=== PATIENT | male | born 2000 | race Caucasian/White ===

== ENCOUNTER 2020-07-29 15:30 | Observation (INO) ==
[2020-07-29] MEDS ORDERED: SODIUM CHLORIDE 0.9% 1000ML 1,000 ML IV ONE (17:10)
[2020-07-29] MEDS ORDERED: ALBUT/IPRATROP 3MG/0.5MG NEB 3 ML VIAL NEB STA (17:10)
--- NOTE | 2020-07-29 17:19 | Emergency Department Note ---
History of Present Illness General Chief complaint: Shortness of Breath/Dyspnea Stated complaint: TESTED POSITIVE FOR COVID Time Seen by Provider: 07/29/20 16:51 History of Present Illness Maximum Pain Intensity: 3 This patient is a 19-year-old male who presents ambulatory to the emergency department for evaluation of increased shortness of breath that has gotten progressively worse over the last 2 weeks. He is also reporting a productive cough. He denies any chest pain. The patient tested positive for Covid 2 weeks ago. He was seen at [facility] and prescribed a steroid and an albuterol inhaler, which he has been taking with no relief. Home Medications Medication Instructions Recorded Confirmed Type albuterol sulfate 2.5 mg CONTINUOUS NEBULIZATION Q4H 07/29/20 07/29/20 History Allergies Allergy/AdvReac Type Severity Reaction Status Date / Time No Known Allergies Allergy Unknown Verified 07/29/20 20:24 Past Med/Surg History Social History Smoking Status: Never smoker Cigarettes Per Day: patient just quit vaping 07/30/20; Hx Alcohol Use: No Hx Substance Use: No Preferred Language: German Communication Ability: Effective Title I Math Tutor Required: No Beliefs That Will Affect Care: None Current Living Situation: Family Other Information That Helps Us Care for You: No Feels Safe at Home: Yes Safety Concerns: Feels Safe At This Time Assistive Devices: None Assistive Devices Comment: Glasses -for driving -left at home Review of Systems A total of 10 systems reviewed and were otherwise negative Physical Exam Vital Signs Vital Signs - 24 hr 07/29/20 15:39 07/29/20 17:20 07/29/20 18:28 Temperature 36.5 C Temperature Source Oral Pulse Rate 119 H Pulse Rate [Finger] 116 H 108 H Pulse Rhythm Regular Pulse Strength Normal Respiratory Rate 24 18 24 Respiratory Effort / Characteristics Non-Labored Spontaneous SOB on Exertion Non-Labored Spontaneous Respiratory Depth Normal Respiratory Pattern Regular Blood Pressure 147/96 H Blood Pressure [Right Arm] 149/91 H Blood Pressure Mean 113 Blood Pressure Mean [Right Arm] 110 Blood Pressure Position Sitting Blood Pressure Position [Right Arm] Pulse Oximetry 97 97 98 Oxygen Delivery Method Room Air Room Air Sepsis Recent Fever Within 48 Hours No Sepsis New/Unexplained Change in Mental Status No Sepsis Action Taken by Nursing No Action Required 07/29/20 20:30 07/29/20 22:03 Temperature Temperature Source Pulse Rate Pulse Rate [Finger] 97 H 100 H Pulse Rhythm Pulse Strength Respiratory Rate 20 22 Respiratory Effort / Characteristics Non-Labored Spontaneous Respiratory Depth Normal Respiratory Pattern Regular Blood Pressure Blood Pressure [Right Arm] 162/93 H 163/105 H Blood Pressure Mean Blood Pressure Mean [Right Arm] 116 124 Blood Pressure Position Blood Pressure Position [Right Arm] Sitting Sitting Pulse Oximetry 98 98 Oxygen Delivery Method Room Air Room Air Sepsis Recent Fever Within 48 Hours Sepsis New/Unexplained Change in Mental Status Sepsis Action Taken by Nursing Constitutional WD/WN, vitals as above Eyes EOM intact bilaterally ENMT external ear and nose normal, oropharynx normal Neck trachea midline Respiratory Tachypnea noted Gastrointestinal (Abdomen) normal bowel sounds, soft, nontender, no hepatosplenomegaly Musculoskeletal no cyanosis or clubbing, extremities motor strength 5/5 Skin no rashes, warm and dry Neurologic Alert and oriented x3. No focal motor deficits. Psychiatric Acting appropriately Course Course Patient was seen and examined Vital signs including blood pressure were reviewed medications list was verified with patient Labs were obtained, and a saline lock was established A DuoNeb was ordered Imaging was performed and reviewed Findings were discussed with the patient. We discussed disposition options. He was comfortable with being possibly managed inpatient. The findings were discussed with the patient's mother. She was in agreement. Antibiotics were ordered and given The case was discussed with the [facility]. They agreed to evaluate the patient for possible inpatient management. The patient remained stable in the emergency department. Administered Medications Doxycycline Hyclate (Doxycycline Hyclate 100 Mg Cap) 100 mg PO BID YOANA Stop: 08/06/20 08:59 Last Admin: 07/30/20 08:26 Dose: 100 mg Documented by: [id number] Enoxaparin Sodium (Enoxaparin Inj 40 Mg/0.4 Ml Syr) 40 mg SQ Q12H YOANA Stop: 08/29/20 00:59 Last Admin: 07/30/20 10:37 Dose: 40 mg Documented by: [id number] Admin: 07/30/20 02:00 Dose: 40 mg Documented by: [id number] Discontinued Medications Albuterol (Albut/Ipratrop 3mg/0.5mg Neb 3 Ml Vial) 3 ml NEB NOW STA Stop: 07/29/20 17:11 Last Admin: 07/29/20 17:19 Dose: 3 ml Documented by: [id number] Azithromycin (Azithromycin 250 Mg Tab) 500 mg PO NOW ONE Stop: 07/29/20 20:13 Last Admin: 07/29/20 20:26 Dose: 500 mg Documented by: [id number] Sodium Chloride (Nss 1000ml) 1,000 mls @ 999 mls/hr IV .Q1H1M ONE Stop: 07/29/20 18:10 Last Infusion: 07/29/20 19:07 Dose: 0 mls/hr Documented by: [id number] Admin: 07/29/20 18:06 Dose: 999 mls/hr Documented by: [id number] Ceftriaxone Sodium (Rocephin) 2,000 mg in 70 mls @ 140 mls/hr IV NOW STA Stop: 07/29/20 20:41 Last Infusion: 07/29/20 20:56 Dose: 0 mls/hr Documented by: [id number] Admin: 07/29/20 20:26 Dose: 140 mls/hr Documented by: [id number] Ioversol (Optiray 320 125ml) 119 ml IV ONCE ONE Stop: 07/29/20 19:15 Last Admin: 07/29/20 19:15 Dose: 119 ml Documented by: [id number] Medical Decision Making Medical Records Attestation: I reviewed the patient's medical records. Home Medications Current Medication List: was personally reviewed by me Laboratory Data Attestation: I reviewed the patient's lab results. Result diagrams: 07/30/20 05:38 07/30/20 05:38 Lab Results 07/29/20 07/29/20 07/29/20 Range/Units 18:03 18:03 18:03 WBC 10.86 H (4.8-10.8) K/uL RBC 5.39 (4.7-6.1) M/uL Hgb 15.7 (14.0-18.0) g/dL Hct 45.8 (42-52) % MCV 85.0 (80-100) fL MCH 29.1 (25-34) pg MCHC 34.3 (32-36) g/dL RDW Std Deviation 43.3 (36.4-46.3) fL RDW Coeff of Minesh 14.0 (11.5-14.5) % Plt Count 349 (130-400) K/uL MPV 9.1 (7.4-10.4) fL Immature Gran % (Auto) 0.9 % Neut % (Auto) 63.4 % Lymph % (Auto) 27.6 % [place] % (Auto) 6.7 % Eos % (Auto) 1.2 % Baso % (Auto) 0.2 % Neut # (Auto) 6.88 H (1.4-6.5) K/uL Lymph # (Auto) 3.00 (1.2-3.4) K/uL [place] # (Auto) 0.73 H (0.11-0.59) K/uL Eos # (Auto) 0.13 (0-0.5) K/uL Baso # (Auto) 0.02 (0-0.2) K/uL Immature Gran # (Auto) 0.10 H (0.00-0.02) K/uL PT 10.1 (9.0-12.0) Seconds INR 1.0 (0.9-1.1) Sodium 138 (136-145) mmol/L Potassium 4.0 (3.5-5.1) mmol/L Chloride 107 (98-107) mmol/L Carbon Dioxide 24 (21-32) mmol/L Anion Gap 7.0 (3-11) BUN 23 H (7-18) mg/dl Creatinine 0.84 (0.6-1.4) mg/dl Est Cr Clr Drug Dosing 227.4 ml/min Est GFR ( Amer) 147.1 Est GFR (Non-Af Amer) 126.9 BUN/Creatinine Ratio 27.4 H (10-20) Glucose 96 (70-99) mg/dl Calcium 9.2 (8.5-10.1) mg/dl Total Bilirubin 0.3 (0.2-1) mg/dl AST 17 (15-37) U/L ALT 43 (12-78) U/L Alkaline Phosphatase 81 (45-117) U/L Troponin I < 0.015 (0-0.045) ng/ml Total Protein 7.6 (6.4-8.2) gm/dl Albumin 3.1 L (3.4-5.0) gm/dl Globulin 4.5 H (2.5-4.0) gm/dl Albumin/Globulin Ratio 0.7 L (0.9-2) Imaging Data Attestation: I personally reviewed and interpreted this imaging study as follows: Radiologist's Impression: CT chest PE study IMPRESSION: 1. Suboptimal pulmonary arterial opacification, but no findings to indicate acute pulmonary embolism 2. Multifocal bilateral groundglass pulmonary opacities consistent with a multifocal pneumonia. The findings are consistent with although not specific for Covid 19 pneumonia 3. Mild mediastinal and hilar danya enlargement, likely reactive ACT 112: Negative or not required by law. Electronically signed by: Nelson Mackay M.D. 07/29/2020 7:20 PM Dictated: 07/29/201914 Transcribed: 07/29/201918 MDM Narrative Differential diagnosis: Bronchitis, pneumonia, other infectious etiology including Covid, PE, cardiac ischemia, anemia, dehydration, among others were considered This patient is a pleasant 19-year-old male who presents ambulatory to the emergency department for evaluation of increasing shortness of breath over the last several weeks. He tested positive for Covid. On exam, he was slightly tachycardic and tachypneic. Oxygen at this point is stable in the low 90s. A work-up was performed. Labs were unremarkable. A CT scan was performed to rule out PE or pneumonia. This is consistent with multifocal pneumonia. As the patient has already been treated with albuterol and steroids as an outpatient, I believe hospitalist consultation is reasonable for possible inpatient management. He was treated with antibiotics and albuterol in the emergency department. He remained stable. Impression & Plan Community acquired pneumonia Discharge Plan Visit Data Chief Complaint: Shortness of Breath/Dyspnea Stated Complaint: TESTED POSITIVE FOR COVID ED Provider: Maxi Gonzalez ED Midlevel Provider: Jacqueline Garvin Discharge Problem: Community acquired pneumonia Patient Disposition: Admitted As Inpatient Discharge Instructions Interventions: ED Discharge Assessment Last Done: 07/30/20 00:23
[2020-07-29 18:14] LABS: Basophils # (auto) 0.02 K/uL (0-0.2); Basophils % (auto) 0.2 %; Eosinophils # (auto) 0.13 K/uL (0-0.5); Eosinophils % (auto) 1.2 %; Hematocrit (blood only) 45.8 % (42-52); Hemoglobin 15.7 g/dL (14.0-18.0); Immature Granulocytes % (auto) 0.9 %; Lymphocytes % (auto) 27.6 %; Mean Corpuscular Hemoglobin 29.1 pg (25-34); Mean Corpuscular Hgb Conc 34.3 g/dL (32-36); Mean Platelet Volume 9.1 fL (7.4-10.4); Monocytes # (auto) 0.73 K/uL (0.11-0.59); Monocytes % (auto) 6.7 %; Neutrophils # (auto) 6.88 K/uL (1.4-6.5); Neutrophils % (auto) 63.4 %; Platelet Count 349 K/uL (130-400); RDW Standard Deviation 43.3 fL (36.4-46.3); Red Blood Count 5.39 M/uL (4.7-6.1); White Blood Count 10.86 K/uL (4.8-10.8)
[2020-07-29 18:28] LABS: Prothrombin Time 10.1 Seconds (9.0-12.0)
[2020-07-29 18:32] LABS: Alanine Aminotransferase 43 U/L (12-78); Albumin Level 3.1 gm/dl (3.4-5.0); Aspartate Aminotransferase 17 U/L (15-37); BUN Creatinine Ratio 27.4 (10-20); Blood Urea Nitrogen 23 mg/dl (7-18); Calcium 9.2 mg/dl (8.5-10.1); Carbon Dioxide 24 mmol/L (21-32); Chloride 107 mmol/L (98-107); Creatinine Clr Calc Pharmacy 227.4 ml/min; Est GFR (African American) 147.1; Est GFR (Non-African American) 126.9; Glucose 96 mg/dl (70-99); Sodium 138 mmol/L (136-145)
[2020-07-29 18:36] LABS: Albumin Globulin Ratio 0.7 (0.9-2); Alkaline Phosphatase 81 U/L (45-117); Bilirubin,Total 0.3 mg/dl (0.2-1); Globulin 4.5 gm/dl (2.5-4.0); Total Protein 7.6 gm/dl (6.4-8.2); Troponin I < 0.015 ng/ml (0-0.045)
[2020-07-29] MEDS ORDERED: OPTIRAY 320 125ml IV ONE (19:14)
--- NOTE | 2020-07-29 19:21 | CT Scan Report ---
CT ANGIOGRAM OF THE CHEST CLINICAL HISTORY: Shortness of breath. Covid 19 positive. POSSIBLE PULMONARY EMBOLISM. COMPARISON STUDY: No previous studies for comparison. TECHNIQUE: Following the IV administration of 119 mL of Optiray-320, CT angiogram of the thorax was p erformed from the thoracic inlet to the lung bases utilizing the pulmonary embolus protocol. Images a re reviewed in the axial, sagittal, and coronal planes. IV contrast was administered without complica tion. MIP imaging was performed. A dose lowering technique was utilized adhering to the principles o f ALARA. CT DOSE: 1047.70 mGy.cm FINDINGS: Within the upper abdomen, there is a nonspecific partially visualized 19 mm nodule adjacent the left adrenal gland and posterior medial to the stomach. This cannot be further characterized as it is inco mpletely visualized There are mildly enlarged mediastinal and hilar lymph nodes, statistically reactive. There was no evidence of thoracic aortic dilatation. There is suboptimal pulmonary arterial opacification. No emboli are visualized. If there is a strong clinical concern over the presence of acute pulmonary embolism, correlation with serial leg ultrasono graphy should be considered. No pleural effusions are visualized. There are multifocal bilateral groundglass pulmonary opacities consistent with a multifocal pneumonia . The appearance is consistent with although not specific for Covid 19 pneumonia. IMPRESSION: 1. Suboptimal pulmonary arterial opacification, but no findings to indicate acute pulmonary embolism 2. Multifocal bilateral groundglass pulmonary opacities consistent with a multifocal pneumonia. The f indings are consistent with although not specific for Covid 19 pneumonia 3. Mild mediastinal and hilar danya enlargement, likely reactive ACT 112: Negative or not required by law. Electronically signed by: Nelson Mackay M.D. 07/29/2020 7:20 PM
[2020-07-29] MEDS ORDERED: AZITHROMYCIN 250 MG TAB PO ONE (20:12)
[2020-07-29] MEDS ORDERED: cefTRIAXone SODIUM 2,000 MG/70 ML BAG IV STA (20:12)
[2020-07-30] MEDS ORDERED: KETOROLAC TROMETHAMINE 15 MG/ML VIAL IV PRN (00:44)
[2020-07-30] MEDS ORDERED: ACETAMINOPHEN 325 MG TAB PO PRN (00:44)
[2020-07-30] MEDS ORDERED: ALBUTEROL HFA 8 GM INHALER INH PRN (00:44)
--- NOTE | 2020-07-30 00:57 | History and Physical Report ---
DATE OF ADMISSION: 07/29/2020 CHIEF COMPLAINT: Shortness of breath, chest pain on deep inspiration. HISTORY OF PRESENT ILLNESS: This 19-year-old male with past medical history significant for metabolic syndrome, history of prolonged QT interval, history of morbid obesity,urticaria, ADHD, who was diagnosed with COVID-19 on 07/16/2020 at [facility], comes because of shortness of breath, ongoing cough and could not take deep breath because it causes chest pain. The patient was in [facility] similar symptoms on 07/22/2020. He was given prednisone and also using albuterol nebulization at home.But the patient says walking a few steps making him short of breath and is still coughing, not bringing much phlegm, but dry cough and also says a deep breath causes chest pains.. Denies any fever, chills. No nausea, no vomiting, no loss of sense of smell or taste. Appetite is good. No weakness, no fatigue, no headache, no blurred vision, no earache, no runny nose, no sore throat. Sometimes nauseous, no vomiting, no abdominal pain. Normal bowel and bladder movements. Currently, resting comfortably and hemodynamically stable. ALLERGIES: PENICILLIN, SULFA AND BACTRIM. PAST MEDICAL HISTORY: As mentioned above. PAST SURGICAL HISTORY: Circumcision and incision of the urinary meatus, tonsillectomy, adenoidectomy, salivary surgery procedure. MEDICATIONS: On albuterol nebulization q. 4 hours p.r.n. FAMILY HISTORY: Significant for mother has hypertension, diabetes, asthma. Father has diabetes, hypertension. Paternal grandmother has asthma and allergies and medullary thyroid cancer, diabetes, hypertension, psoriasis. Maternal grandmother has psoriasis, hypertension, diabetes. Maternal grandfather had psoriasis. Paternal grandfather has diabetes, hypertension. SOCIAL HISTORY: Single, vapes. No alcohol use, no drug use. REVIEW OF SYMPTOMS: As per HPI. Rest of review of symptoms negative. PHYSICAL EXAMINATION: GENERAL: The patient is morbidly obese, not in acute distress. VITAL SIGNS: Temperature 36.5, pulse 100, respiratory rate 22, blood pressure 163/105, oxygen 98% on room air. HEENT: Pupils equal, round, reactive to light. Oral mucosa moist. NECK: No neck masses seen. CARDIOVASCULAR: S1, S2 heard, regular rate and rhythm, no murmur, no gallop. RESPIRATORY SYSTEM: Normal AP diameter. No accessory muscle use. No wheezing, no crackles. ABDOMEN: Soft, bowel sounds present, nontender. No distention. CENTRAL NERVOUS SYSTEM: Cranial nerves II-XII grossly intact. Nonfocal. EXTREMITIES: No edema, no erythema. LABORATORY DATA: WBC 10.8, hemoglobin 15.7, hematocrit 45.8, platelets 349. PT 10.1, INR 1. Sodium 138, potassium 4, chloride 107, bicarbonate 24, BUN 23, creatinine 0.8, serum glucose 296, calcium 9.2, total bilirubin 0.3, AST 17, ALT 43, alkaline phosphatase 81. Troponin I less than 0.015. IMAGING: CTA of the chest suboptimal pulmonary artery opacification, but no findings to indicate acute pulmonary embolism, multifocal bilateral ground-glass pulmonary opacities consistent with multifocal pneumonia. The findings are consistent with although nonspecific for COVID-19 pneumonia, mild mediastinal and hilar danya enlargement, likely reactive. ASSESSMENT AND PLAN: This is a 19-year-old male who was diagnosed with COVID-19 on 07/16/2020, comes with ongoing cough, shortness of breath with exertion and pleurisy symptoms. 1. COVID-19 pneumonia. The patient was diagnosed in 07/16/2020, but he had symptoms couple of days prior to that, is almost like 16 days from the start of infection. He was treated with steroids, also nebs, presents with pleurisy kind of symptoms, having pain with deep breath and also he says he gets short of breath with minimal exertion and still has some dry cough. CTA of the chest showed no PE, but shows multifocal pneumonia. Currently, saturating fine on room air while resting. We will admit to the hospital medical floor. In the ER, he was given azithromycin, will start him on doxycycline for any superimposed bacterial infection. Toradol p.r.n. for pain, check D-dimer and troponin levels in a.m. and we will get an EKG as the patient has history of prolonged QT interval. 2. Morbid obesity, needs counseling. 3. Deep venous thrombosis prophylaxis. DISPOSITION: Admit to medical floor. Expect to discharge home and follow with family doctor. Level 1 full code. MTDD
[2020-07-30] MEDS: ENOXAPARIN INJ 40 MG/0.4 ML SYR SQ SCH ×2 (02:00→10:37)
[2020-07-30 07:39] LABS: Hematocrit (blood only) 43.1 % (42-52); Hemoglobin 14.5 g/dL (14.0-18.0); Mean Corpuscular Hemoglobin 28.9 pg (25-34); Mean Corpuscular Hgb Conc 33.6 g/dL (32-36); Mean Corpuscular Volume 85.9 fL (80-100); RDW Standard Deviation 44.1 fL (36.4-46.3); Red Blood Count 5.02 M/uL (4.7-6.1); White Blood Count 8.87 K/uL (4.8-10.8)
[2020-07-30 07:40] LABS: Basophils # (auto) 0.02 K/uL (0-0.2); Basophils % (auto) 0.2 %; Eosinophils # (auto) 0.13 K/uL (0-0.5); Eosinophils % (auto) 1.5 %; Immature Granulocytes # (auto) 0.06 K/uL (0.00-0.02); Immature Granulocytes % (auto) 0.7 %; Lymphocytes # (auto) 2.11 K/uL (1.2-3.4); Lymphocytes % (auto) 23.8 %; Mean Platelet Volume 9.2 fL (7.4-10.4); Monocytes # (auto) 0.79 K/uL (0.11-0.59); Monocytes % (auto) 8.9 %; Neutrophils # (auto) 5.76 K/uL (1.4-6.5); Neutrophils % (auto) 64.9 %; Platelet Count 332 K/uL (130-400); RDW Coefficient of Variation 14.1 % (11.5-14.5)
[2020-07-30 07:50] LABS: D Dimer 310 ug/L FEU (0-500)
[2020-07-30 08:06] LABS: BUN Creatinine Ratio 23.7 (10-20); Blood Urea Nitrogen 17 mg/dl (7-18); Calcium 9.2 mg/dl (8.5-10.1); Carbon Dioxide 26 mmol/L (21-32); Chloride 105 mmol/L (98-107); Creatinine Clr Calc Pharmacy 282.1 ml/min; Est GFR (African American) > 150.0; Est GFR (Non-African American) 134.5; Glucose 72 mg/dl (70-99); Magnesium 2.2 mg/dl (1.8-2.4); Potassium 3.9 mmol/L (3.5-5.1); Sodium 137 mmol/L (136-145)
[2020-07-30 08:10] LABS: Troponin I < 0.015 ng/ml (0-0.045)
[2020-07-30] MEDS ORDERED: DOXYCYCLINE HYCLATE 100 MG CAP PO SCH (09:00)
--- NOTE | 2020-07-30 13:01 | Hospitalist Progress Note ---
Date of Service July 30, 2020 Assessment & Plan (1) COVID-19: Seen in ED at [facility] on 07/16/20 with pleuritic chest pain and SOB. + exposure to COVID-19 (sister). Patient's SARS-CoV-2 PCR was positive. Chest x-ray was clear. O2 sats were normal on RA. Given prescriptions for dexamethasone and albuterol. Did not take full course of dexamethasone. Presented to ED at [facility] with recurrent pleuritic chest pain and dyspnea on exertion. No fever or hypoxia. CTA chest showed bilateral pulmonary densities consistent with viral pneumonia; study was negative for PE. Given time since onset of symptoms ( > 2 weeks) and lack of hypoxia, COVID- specific therapies not indicated. Pleuritic chest pain treated with steroids with improvement- DC on methylprednisolone dose pack. Received doxycycline for possible concomitant atypical pneumonia. Has pulse ox at home at will continue to monitor O2 sats. (2) Pneumonia due to COVID-19 virus: As discussed above. (3) DVT prophylaxis: SQ enoxaparin. (4) Discharge planning issues: Discharged to home. Medical follow-up with Martha. Mother given update by phone. She is a nurse and will monitor O2 sats at home. Admission and Anticipated Discharge Date Admission Date: July 29, 2020 Subjective Recheck for COVID-19. Feels better. Cough improved. Pleuritic chest pain resolved. Afebrile. Maintaining O2 sats in mid-high 90s on RA. Has some dyspnea with exertion. No nausea, vomiting, diarrhea. Physical Exam 2 Constitutional: no acute distress Eyes: + anicteric sclerae Respiratory: no respiratory distress Auscultation: + wheezes (mild) Cardiovascular: Rate/Rhythm: regular rate and regular rhythm Vessels: no JVD Extremities: no calf tenderness and no edema Gastrointestinal (Abdomen): normal bowel sounds, soft, nontender, no hepatosplenomegaly Musculoskeletal: Extremities: no cyanosis Skin: no rashes, warm and dry Psychiatric: Orientation: alert and oriented x 3 Results & Data Results & Data ([facility]) Vital Signs (Past 12 Hours) Vital Signs Temp Pulse Resp BP Pulse Ox 07/30/20 07:20 36.7 C 99 H 16 157/85 H 95 Laboratory Results 07/30/20 05:38 07/30/20 05:38
--- NOTE | 2020-08-01 11:08 | Discharge Summary ---
Date of Service Date of Admission: 07/29/20 Date of Discharge: 07/30/20 Admission HPI Per Admitting Provider This 19-year-old male with past medical history significant for metabolic syndrome, history of prolonged QT interval, history of morbid obesity,urticaria, ADHD, who was diagnosed with COVID-19 on 07/16/2020 at [facility], comes because of shortness of breath, ongoing cough and could not take deep breath because it causes chest pain. The patient was in [facility] similar symptoms on 07/22/2020. He was given prednisone and also using albuterol nebulization at home.But the patient says walking a few steps making him short of breath and is still coughing, not bringing much phlegm, but dry cough and also says a deep breath causes chest pains.. Denies any fever, chills. No nausea, no vomiting, no loss of sense of smell or taste. Appetite is good. No weakness, no fatigue, no headache, no blurred vision, no earache, no runny nose, no sore throat. Sometimes nauseous, no vomiting, no abdominal pain. Normal bowel and bladder movements. Currently, resting comfortably and hemodynamically stable. Principal Diagnosis COVID-19 pneumonia Discharge Data Allergies Allergy/AdvReac Type Severity Reaction Status Date / Time No Known Allergies Allergy Unknown Verified 07/29/20 20:24 Consultations 07/29/20 22:58 ED Decision to Admit Stat Ordered Studies 07/29/20 17:10 CT angio chest PE protocol Stat Hospital Course (1) COVID-19: Seen in ED at [facility] on 07/16/20 with pleuritic chest pain and SOB. + exposure to COVID-19 (sister). Patient's SARS-CoV-2 PCR was positive. Chest x-ray was clear. O2 sats were normal on RA. Given prescriptions for dexamethasone and albuterol. Did not take full course of dexamethasone. Presented to ED at [facility] with recurrent pleuritic chest pain and dyspnea on exertion. No fever or hypoxia. CTA chest showed bilateral pulmonary densities consistent with viral pneumonia; study was negative for PE. Given time since onset of symptoms ( > 2 weeks) and lack of hypoxia, COVID- specific therapies not indicated. Pleuritic chest pain treated with steroids with improvement- DC on methylprednisolone dose pack. Received doxycycline for possible concomitant atypical pneumonia. Has pulse ox at home at will continue to monitor O2 sats. (2) Pneumonia due to COVID-19 virus: As discussed above. (3) DVT prophylaxis: SQ enoxaparin. (4) Discharge planning issues: Discharged to home. Medical follow-up with Martha. Mother given update by phone. She is a nurse and will monitor O2 sats at home. Total Time Total Time Spent Total Time Spent (In Minutes): 25 Discharge Plan Discharge Items Patient Disposition: Home - Self-Care Reason For Visit: shortness of breath Discharge Diagnosis: COVID pneumonia Activity: As commented below Activity Comment: Gradually increase activity as tolerated. Non-emergency contact: Primary Care Provider and Hospitalist Call non-emergency contact if: you have any medication questions, your symptoms worsen and your temperature is above 101 Follow-up/Referrals: Adriel Thomas MD [Primary Care Provider] - (Date & Time 08/05/2020 2:00 PM Mirlande Huitron, [facility] PLEASE NOTE THAT THIS IS A TELEVIDEO APPOINTMENT. PLEASE FOLLOW THE INSTRUCTIONS PROVIDED IN THE EMAIL YOU WILL RECEIVE. IF YOU HAVE ANY QUESTIONS, PLEASE CALL .) Diet: Regular Addtl Attending Provider Instructions: MEDICATION CHANGES: methylprednisolone taper (Medrol Dosepak) steroid for chest pain- use instead of dexamethasone ibuprofen (Advil) 600 mg 1 pill with food, up to 3 times a day as needed for severe chest pain doxycycline 100 mg 1 pill twice a day (Will not treat COVID, but it is being prescribed in case you have a bacterial pneumonia.) SUMMARY OF TEST RESULTS: CT scan showed changes that look like COVID pneumonia. Oxygen levels were very good- 95-99%. COVID INSTRUCTIONS: Home Isolation COVID-19 Instructions The following information about Home Isolation is from the CDC Website: https://www.cdc.gov/coronavirus/2019-ncov/hcp/ulzzwaqy-artdmrn-cwphzc.html Stay home except to get medical care People who are mildly ill with COVID-19 are able to isolate at home during their illness. You should restrict activities outside your home, except for getting medical care. Do not go to work, school, or public areas. Avoid using public transportation, ride-sharing, or taxis. Separate yourself from other people and animals in your home People: As much as possible, you should stay in a specific room and away from other people in your home. Also, you should use a separate bathroom, if available. Animals: You should restrict contact with pets and other animals while you are sick with COVID-19, just like you would around other people. Although there have not been reports of pets or other animals becoming sick with COVID-19, it is still recommended that people sick with COVID-19 limit contact with animals until more information is known about the virus. When possible, have another member of your household care for your animals while you are sick. If you are sick with COVID-19, avoid contact with your pet, including petting, snuggling, being kissed or licked, and sharing food. If you must care for your pet or be around animals while you are sick, wash your hands before and after you interact with pets and wear a face mask. Call ahead before visiting your doctor If you have a medical appointment, call the healthcare provider and tell them that you have or may have COVID-19. This will help the healthcare providers office take steps to keep other people from getting infected or exposed. Wear a face mask You should wear a face mask when you are around other people (e.g., sharing a room or vehicle) or pets and before you enter a healthcare providers office. If you are not able to wear a face mask (for example, because it causes trouble breathing), then people who live with you should not stay in the same room with you, or they should wear a face mask if they enter your room. Cover your coughs and sneezes Cover your mouth and nose with a tissue when you cough or sneeze. Throw used tissues in a lined trash can. Immediately wash your hands with soap and water for at least 20 seconds or, if soap and water are not available, clean your hands with an alcohol-based hand quad stayer that contains at least 60% alcohol. Clean your hands often Wash your hands often with soap and water for at least 20 seconds, especially after blowing your nose, coughing, or sneezing; going to the bathroom; and before eating or preparing food. If soap and water are not readily available, use an alcohol-based hand quad stayer with at least 60% alcohol, covering all surfaces of your hands and rubbing them together until they feel dry. Soap and water are the best option if hands are visibly dirty. Avoid touching your eyes, nose, and mouth with unwashed hands. Avoid sharing personal household items You should not share dishes, drinking glasses, cups, eating utensils, towels, or bedding with other people or pets in your home. After using these items, they should be washed thoroughly with soap and water. Clean all high-touch surfaces everyday High touch surfaces include counters, tabletops, doorknobs, bathroom fixtures, toilets, phones, keyboards, tablets, and bedside tables. Also, clean any surfaces that may have blood, stool, or body fluids on them. Use a household cleaning spray or wipe, according to the label instructions. Labels contain instructions for safe and effective use of the cleaning product including precautions you should take when applying the product, such as wearing gloves and making sure you have good ventilation during use of the product. Monitor your symptoms Seek prompt medical attention if your illness is worsening (e.g., difficulty breathing).Beforeseeking care, call your healthcare provider and tell them that you have, or are being evaluated for, COVID-19. Put on a face mask before you enter the facility. These steps will help the healthcare providers office to keep other people in the office or waiting room from getting infected or exposed. Ask your healthcare provider to call the local or state health department. Persons who are placed under active monitoring or facilitated self- monitoring should follow instructions provided by their local health department or occupational health professionals, as appropriate. When working with your local health department check their available hours. If you have a medical emergency and need to call 911, notify the dispatch personnel that you have, or are being evaluated for COVID-19. If possible, put on a face mask before emergency medical services arrive. Discontinuing home isolation Patients with confirmed COVID-19 should remain under home isolation precautions until the risk of secondary transmission to others is thought to be low. The decision to discontinue home isolation precautions should be made on a [id number] basis, in consultation with healthcare providers and state and local health departments. According to the CDC: You can be around others after: 10 days since symptoms first appeared and 24 hours with no fever without the use of fever-reducing medications and Other symptoms of COVID-19 are improving OTHER INSTRUCTIONS: It is going to take time to recover from COVID pneumonia, maybe several weeks. Take it slow and easy. Gradually increase activity as tolerated. Check your oxygen levels every day with pulse oximeter. You should not return to work until feeling better and: -10 days since symptoms first appeared and -24 hours with no fever without the use of fever-reducing medications and -Other symptoms of COVID-19 are improving Seek medical attention if you have: * temperature above 101 * chest pain or trouble breathing * pulse oximeter reading less than 90% * abdominal pain, nausea, vomiting * diarrhea, dark stools or bloody stools * any unanswered questions or concerns Call 911 if symptoms are severe. Please take good care of yourself. Call if you have any questions or problems. You can reach a [facility] hospitalist on duty at [facility] 24 hours a day by calling [phone]. My cell # is [phone]. Pending Studies at Discharge: No Stand-Alone Forms: [facility], Work/School Release (Inpt), Smoking Cessation Medications and DC Order Prescriptions: New methylprednisolone [Methylpred DP] 4 mg tablets,dose pack See Rx Instructions .ROUTE .COMPLEX Qty: 21 RF: 0 doxycycline hyclate 100 mg tablet,delayed release (DR/EC) 100 mg PO BID 7 Days Qty: 14 RF: 0 ibuprofen 600 mg tablet 600 mg PO TID PRN (Reason: pain) Qty: 30 RF: 0 Continued albuterol sulfate 2.5 mg /3 mL (0.083 %) solution for nebulization 2.5 mg continuous nebulization Q4H RF: 0 Discharge Orders: Discharge Order (Routine); Ordered 07/30/20 Ordered By: Michele Capellan/Other Patient Handouts: COVID-19 Prevention Admission Data Admit Date/Time: 07/29/20 22:45 Attending Provider: Michele Castro Admit Provider: Govind Solomon Primary Care Provider: Adriel Thomas Other Providers: Govind Solomon Other Interventions: Discharge Summary Assessment (RN) Last Done: 07/30/20 15:49
--- NOTE | 2020-08-01 11:18 | Discharge Summary ---
Date of Service Date of Admission: 07/29/20 Date of Discharge: 07/30/20 Admission HPI Per Admitting Provider This 19-year-old male with past medical history significant for metabolic syndrome, history of prolonged QT interval, history of morbid obesity,urticaria, ADHD, who was diagnosed with COVID-19 on 07/16/2020 at [facility], comes because of shortness of breath, ongoing cough and could not take deep breath because it causes chest pain. The patient was in [facility] similar symptoms on 07/22/2020. He was given prednisone and also using albuterol nebulization at home.But the patient says walking a few steps making him short of breath and is still coughing, not bringing much phlegm, but dry cough and also says a deep breath causes chest pains.. Denies any fever, chills. No nausea, no vomiting, no loss of sense of smell or taste. Appetite is good. No weakness, no fatigue, no headache, no blurred vision, no earache, no runny nose, no sore throat. Sometimes nauseous, no vomiting, no abdominal pain. Normal bowel and bladder movements. Currently, resting comfortably and hemodynamically stable. Principal Diagnosis COVID-19 pneumonia Discharge Data Allergies Allergy/AdvReac Type Severity Reaction Status Date / Time No Known Allergies Allergy Unknown Verified 07/29/20 20:24 Consultations 07/29/20 22:58 ED Decision to Admit Stat Ordered Studies 07/29/20 17:10 CT angio chest PE protocol Stat Hospital Course (1) COVID-19: Seen in ED at [facility] on 07/16/20 with pleuritic chest pain and SOB. + exposure to COVID-19 (sister). Patient's SARS-CoV-2 PCR was positive. Chest x-ray was clear. O2 sats were normal on RA. Given prescriptions for dexamethasone and albuterol. Did not take full course of dexamethasone. Presented to ED at [facility] with recurrent pleuritic chest pain and dyspnea on exertion. No fever or hypoxia. CTA chest showed bilateral pulmonary densities consistent with viral pneumonia; study was negative for PE. Given time since onset of symptoms ( > 2 weeks) and lack of hypoxia, COVID- specific therapies not indicated. Pleuritic chest pain treated with steroids with improvement- DC on methylprednisolone dose pack. Received doxycycline for possible concomitant atypical pneumonia. Has pulse ox at home at will continue to monitor O2 sats. (2) Pneumonia due to COVID-19 virus: As discussed above. (3) DVT prophylaxis: SQ enoxaparin. (4) Discharge planning issues: Discharged to home. Medical follow-up with Martha. Mother given update by phone. She is a nurse and will monitor O2 sats at home. Total Time Total Time Spent Total Time Spent (In Minutes): 25 Discharge Plan Discharge Items Patient Disposition: Home - Self-Care Reason For Visit: shortness of breath Discharge Diagnosis: COVID pneumonia Activity: As commented below Activity Comment: Gradually increase activity as tolerated. Non-emergency contact: Primary Care Provider and Hospitalist Call non-emergency contact if: you have any medication questions, your symptoms worsen and your temperature is above 101 Follow-up/Referrals: Adriel Thomas MD [Primary Care Provider] - (Date & Time 08/05/2020 2:00 PM Mirlande Huitron, [facility] PLEASE NOTE THAT THIS IS A TELEVIDEO APPOINTMENT. PLEASE FOLLOW THE INSTRUCTIONS PROVIDED IN THE EMAIL YOU WILL RECEIVE. IF YOU HAVE ANY QUESTIONS, PLEASE CALL .) Diet: Regular Addtl Attending Provider Instructions: MEDICATION CHANGES: methylprednisolone taper (Medrol Dosepak) steroid for chest pain- use instead of dexamethasone ibuprofen (Advil) 600 mg 1 pill with food, up to 3 times a day as needed for severe chest pain doxycycline 100 mg 1 pill twice a day (Will not treat COVID, but it is being prescribed in case you have a bacterial pneumonia.) SUMMARY OF TEST RESULTS: CT scan showed changes that look like COVID pneumonia. Oxygen levels were very good- 95-99%. COVID INSTRUCTIONS: Home Isolation COVID-19 Instructions The following information about Home Isolation is from the CDC Website: https://www.cdc.gov/coronavirus/2019-ncov/hcp/ormhhrho-ybtemjp-axdddf.html Stay home except to get medical care People who are mildly ill with COVID-19 are able to isolate at home during their illness. You should restrict activities outside your home, except for getting medical care. Do not go to work, school, or public areas. Avoid using public transportation, ride-sharing, or taxis. Separate yourself from other people and animals in your home People: As much as possible, you should stay in a specific room and away from other people in your home. Also, you should use a separate bathroom, if available. Animals: You should restrict contact with pets and other animals while you are sick with COVID-19, just like you would around other people. Although there have not been reports of pets or other animals becoming sick with COVID-19, it is still recommended that people sick with COVID-19 limit contact with animals until more information is known about the virus. When possible, have another member of your household care for your animals while you are sick. If you are sick with COVID-19, avoid contact with your pet, including petting, snuggling, being kissed or licked, and sharing food. If you must care for your pet or be around animals while you are sick, wash your hands before and after you interact with pets and wear a face mask. Call ahead before visiting your doctor If you have a medical appointment, call the healthcare provider and tell them that you have or may have COVID-19. This will help the healthcare providers office take steps to keep other people from getting infected or exposed. Wear a face mask You should wear a face mask when you are around other people (e.g., sharing a room or vehicle) or pets and before you enter a healthcare providers office. If you are not able to wear a face mask (for example, because it causes trouble breathing), then people who live with you should not stay in the same room with you, or they should wear a face mask if they enter your room. Cover your coughs and sneezes Cover your mouth and nose with a tissue when you cough or sneeze. Throw used tissues in a lined trash can. Immediately wash your hands with soap and water for at least 20 seconds or, if soap and water are not available, clean your hands with an alcohol-based hand slurry control tender that contains at least 60% alcohol. Clean your hands often Wash your hands often with soap and water for at least 20 seconds, especially after blowing your nose, coughing, or sneezing; going to the bathroom; and before eating or preparing food. If soap and water are not readily available, use an alcohol-based hand slurry control tender with at least 60% alcohol, covering all surfaces of your hands and rubbing them together until they feel dry. Soap and water are the best option if hands are visibly dirty. Avoid touching your eyes, nose, and mouth with unwashed hands. Avoid sharing personal household items You should not share dishes, drinking glasses, cups, eating utensils, towels, or bedding with other people or pets in your home. After using these items, they should be washed thoroughly with soap and water. Clean all high-touch surfaces everyday High touch surfaces include counters, tabletops, doorknobs, bathroom fixtures, toilets, phones, keyboards, tablets, and bedside tables. Also, clean any surfaces that may have blood, stool, or body fluids on them. Use a household cleaning spray or wipe, according to the label instructions. Labels contain instructions for safe and effective use of the cleaning product including precautions you should take when applying the product, such as wearing gloves and making sure you have good ventilation during use of the product. Monitor your symptoms Seek prompt medical attention if your illness is worsening (e.g., difficulty breathing).Beforeseeking care, call your healthcare provider and tell them that you have, or are being evaluated for, COVID-19. Put on a face mask before you enter the facility. These steps will help the healthcare providers office to keep other people in the office or waiting room from getting infected or exposed. Ask your healthcare provider to call the local or state health department. Persons who are placed under active monitoring or facilitated self- monitoring should follow instructions provided by their local health department or occupational health professionals, as appropriate. When working with your local health department check their available hours. If you have a medical emergency and need to call 911, notify the dispatch personnel that you have, or are being evaluated for COVID-19. If possible, put on a face mask before emergency medical services arrive. Discontinuing home isolation Patients with confirmed COVID-19 should remain under home isolation precautions until the risk of secondary transmission to others is thought to be low. The decision to discontinue home isolation precautions should be made on a [id number]-[id number] basis, in consultation with healthcare providers and state and local health departments. According to the CDC: You can be around others after: 10 days since symptoms first appeared and 24 hours with no fever without the use of fever-reducing medications and Other symptoms of COVID-19 are improving OTHER INSTRUCTIONS: It is going to take time to recover from COVID pneumonia, maybe several weeks. Take it slow and easy. Gradually increase activity as tolerated. Check your oxygen levels every day with pulse oximeter. You should not return to work until feeling better and: -10 days since symptoms first appeared and -24 hours with no fever without the use of fever-reducing medications and -Other symptoms of COVID-19 are improving Seek medical attention if you have: * temperature above 101 * chest pain or trouble breathing * pulse oximeter reading less than 90% * abdominal pain, nausea, vomiting * diarrhea, dark stools or bloody stools * any unanswered questions or concerns Call 911 if symptoms are severe. Please take good care of yourself. Call if you have any questions or problems. You can reach a [facility] hospitalist on duty at [facility] 24 hours a day by calling [phone]. My cell # is [phone]. Pending Studies at Discharge: No Stand-Alone Forms: My [facility], Work/School Release (Inpt), Smoking Cessation Medications and DC Order Prescriptions: New methylprednisolone [Methylpred DP] 4 mg tablets,dose pack See Rx Instructions .ROUTE .COMPLEX Qty: 21 RF: 0 doxycycline hyclate 100 mg tablet,delayed release (DR/EC) 100 mg PO BID 7 Days Qty: 14 RF: 0 ibuprofen 600 mg tablet 600 mg PO TID PRN (Reason: pain) Qty: 30 RF: 0 Continued albuterol sulfate 2.5 mg /3 mL (0.083 %) solution for nebulization 2.5 mg continuous nebulization Q4H RF: 0 Discharge Orders: Discharge Order (Routine); Ordered 07/30/20 Ordered By: Michele Capellan/Other Patient Handouts: COVID-19 Prevention Admission Data Admit Date/Time: 07/29/20 22:45 Attending Provider: Michele Castro Admit Provider: Govind Solomon Primary Care Provider: Adriel Thomas Other Providers: Govind Solomon Other Interventions: Discharge Summary Assessment (RN) Last Done: 07/30/20 15:49
== END 2020-07-30 16:52 | disposition home or self-care (01) ==
LOC: ED 15:30 → INTOOBSV 22:45 → 3E 22:45